=== PATIENT | female | born 1965 | race Caucasian/White ===

== ENCOUNTER → 2016-07-24 | Outpatient (CLI) | payer BC ==
--- NOTE | 2016-07-25 08:39 | CT ---
CT OF THE CHEST, ABDOMEN AND PELVIS WITHOUT IV CONTRAST HISTORY: Right renal cell carcinoma Comparison: None Technique: Non contrast axial images of the chest, abdomen, and pelvis were obtained from the thorac ic inlet to the pubic symphysis. Dose reduction techniques including Automated Exposure Control (AEC ) and adjustment of mA and kV were utlized. Findings: The sensitivity for focal lesion detection within the solid abdominal viscera, and medias tinum is diminished without the use of IV contrast. CT chest without contrast: The heart is normal in size. No pericardial effusion. Right thyroid nodul e measuring 2 cm on series 3, image 1 No suspicious mediastinal or axillary lymph nodes. No focal consolidations, pleural effusions or pneumothorax. Airways are patent. 5 mm lingular nodule on series 4, image 31. 3 mm right upper lobe nodule on series 4, image 22. 5 mm nodule in the right lower lobe on series 4, image 43. 6 mm nodule right lower lobe on series 4, image 37. 9 mm nodule t he right lower lobe on series 4, image 29. CT abdomen and pelvis without contrast : Liver and spleen are normal in size and contour. No focal l esions. No ductal dilitation. Gallbladder is present. No calcified gallstones or gallbladder wall th ickening. The pancreas is unremarkable. Adrenal glands are normal. Status post right nephrectomy. No mass is in the right nephrectomy bed. Left kidney grossly normal. No nephrolithiasis or hydronephro sis. No bowel obstruction or inflammation. Normal appendix. No abnormal appearing mesenteric or retroperi toneal lymph nodes. No free fluid or fluid collections. The bladder is normal in appearance. Uterus and ovaries present. There is a lobulation of the uterus suggesting fibroids.. No free fluid or abnormal pelvic lymph nodes. No aggressive osseous lesions. IMPRESSION: 1. Multiple bilateral pulmonary nodules with the largest measuring 9 mm in the right lower lobe. In the setting of known malignancy, metastatic disease cannot be excluded. Recommend comparison with o ld examinations to document stability. Otherwise short interval followup would be recommended. 2. Status post right nephrectomy without evidence of local recurrence. 3. Presumed fibroid uterus. 4. Right thyroid nodule. Correlate with ultrasound if clinically indicated. Reported By:
== END ==
LOC: RAD 15:12
PROVIDERS: ATTEND Internal Medicine
DX: R91.1 Solitary pulmonary nodule (principal); Z85.528 Personal history of other malignant neoplasm of kidney
CPT/HCPCS: 71250; 74176

== ENCOUNTER → 2016-10-30 | Outpatient (CLI) | payer BC ==
--- NOTE | 2016-10-30 16:28 | CT ---
CT chest without contrast Indication: Follow up pulmonary nodules, history of RCC Technique: Helical CT images of the chest were obtained without IV contrast. Reformatted images in t he coronal and sagittal planes were also generated for review. Comparison: CT Chest July 24, 2016 Findings: Hypoattenuating right thyroid gland nodule and bilateral breast implants are noted. There is no mediastinal, hilar or axillary lymphadenopathy. Heart size is normal without pericardial effusion. The thoracic aorta and great vessels appear normal for noncontrast technique. The central airways are patent. Multiple noncalcified right upper and lower lobe nodules, ranging between 2-9 mm appear stable and n umber, size and extent since the prior examination. For future reference, a dominant nodule within t he medial right lower lobe measures 9 mm on image 26, series 3, unchanged. Multiple additional sub c m nodules within the left lower lobe and lingula, measuring up to 5 mm (image 31, series 3) also danitza ear similar. No focal consolidation or definite new pulmonary nodules/masses are identified. No pleu ral effusion is seen. Limited noncontrast images of the upper abdomen demonstrate prior right nephrectomy changes. No aggr essive osseous lesions are identified. Impression: 1. Stable indeterminate bilateral pulmonary nodules, as above. Given patient history of renal cell c ancer, metastatic disease cannot be excluded and continued close attention at short-term follow up C T in 3-6 months is recommended. The lesions remain too small for PET-CT characterization. 2. Stable right thyroid gland nodule. Again, further evaluation with nonemergent ultrasound can be p erformed, if indicated. Reported By:
== END ==
LOC: RAD 13:59
PROVIDERS: ATTEND Internal Medicine
DX: R91.1 Solitary pulmonary nodule (principal)
CPT/HCPCS: 71250

== ENCOUNTER → 2017-03-19 | Outpatient (CLI) | payer BC ==
--- NOTE | 2017-03-20 13:55 | CT ---
HISTORY: Renal cell carcinoma. Follow-up for pulmonary nodules Study: Computed tomography of the chest: Multiple axial images were obtained throughout the chest. Intravascular contrast was not administered. Radiation dose reduction techniques utilized. Comparison: 10/30/2016 Findings: There again noted to be scattered pulmonary nodules throughout both lungs. These are not calcified. The largest is in the right lower lobe measures approximately 9.5 mm in maximum dimension. The laureen shahana are small. They all appear stable in their size and configuration. There are few areas of foc al scarring present. The thyroid is heterogeneous. I do not clearly identify the small nodule seen in the right lobe on t he prior examination. No evidence of supraclavicular adenopathy is identified. No evidence of axill ester adenopathy is identified. Bilateral breast implants are present, unchanged. No evidence of medi astinal or hilar adenopathy is identified. The heart size is normal. No appreciable atherosclerotic changes noted. No appreciable coronary arterial calcification is present. A small hiatal hernia is present. Mild fatty infiltration of the liver is noted. The spleen is normal with a small splenic lobule pres ent, unchanged. The adrenal glands are normal. The patient is status post right nephrectomy. The v isualized left kidney is normal. The visualized gallbladder and pancreas are normal. The visualized abdominal aorta and inferior vena cava are normal. Examination of the bone windows demonstrates minimal thoracic spondylosis. I see no lytic or blastic lesions that would suggest metastasis. IMPRESSION: 1. Stable appearance of the multiple noncalcified pulmonary nodules. Continued follow-up is recomme nded. These may represent noncalcified granulomas, however, metastatic disease cannot be entirely ex cluded. 2. Mild fatty infiltration of the liver. Reported By:
== END | disposition home or self-care (01) | DRG 206 ==
LOC: RAD 10:57
PROVIDERS: ATTEND Internal Medicine
DX: R91.1 Solitary pulmonary nodule (principal); K76.0 Fatty (change of) liver, not elsewhere classified
CPT/HCPCS: 71250